=== PATIENT | male | born 1935 | race Caucasian/White ===

== ENCOUNTER 2018-06-25 02:05 | Outpatient (CLI) | payer MEDICARE, BC | END 2018-06-25 23:59 | disposition home or self-care (01) | LOC: DIABETIC 02:05 | PROVIDERS: ATTEND Family Medicine | DX: E11.9 Type 2 diabetes mellitus without complications (principal); Z79.82 Long term (current) use of aspirin; Z79.899 Other long term (current) drug therapy | CPT/HCPCS: G0108 ==

== ENCOUNTER 2018-10-16 08:54 | Outpatient (CLI) | payer MEDICARE, BC | END 2018-10-16 23:59 | disposition home or self-care (01) | LOC: DIABETIC 08:54 | PROVIDERS: ATTEND Family Medicine | DX: E11.9 Type 2 diabetes mellitus without complications (principal); Z79.84 Long term (current) use of oral hypoglycemic drugs; Z79.82 Long term (current) use of aspirin | CPT/HCPCS: G0108 ==

== ENCOUNTER 2019-01-21 04:40 | Outpatient (CLI) | payer MEDICARE, BC | END 2019-01-21 23:59 | disposition home or self-care (01) | LOC: DIABETIC 04:40 | PROVIDERS: ATTEND Family Medicine | DX: E11.9 Type 2 diabetes mellitus without complications (principal); Z79.84 Long term (current) use of oral hypoglycemic drugs | CPT/HCPCS: G0108 ==

== ENCOUNTER 2019-05-27 04:37 | Outpatient (CLI) | payer MEDICARE, BC | END 2019-05-27 23:59 | disposition home or self-care (01) | LOC: DIABETIC 04:37 | PROVIDERS: ATTEND Family Medicine | DX: E11.9 Type 2 diabetes mellitus without complications (principal); Z79.84 Long term (current) use of oral hypoglycemic drugs; Z79.899 Other long term (current) drug therapy | CPT/HCPCS: G0108 ==

== ENCOUNTER 2022-05-23 06:18 | Emergency (ER) | payer MEDICARE, BC ==
[2022-05-23] MEDS ORDERED: normal saline 1000ML IV soln IVB ONE (06:30)
[2022-05-23 08:17] LABS: BASOPHILS # (AUTO) 0.1 X10'3 (0-0.2); BASOPHILS % (AUTO) 0.6 % (0-1); EOSINOPHILS # (AUTO) 0.1 X10'3 (0-0.9); EOSINOPHILS % (AUTO) 0.6 % (0-6); HEMATOCRIT 52.7 % (42.0-52.0); LYMPHOCYTES # (AUTO) 1.3 X10'3 (1.1-4.8); LYMPHOCYTES % (AUTO) 13.3 % (21-51); MEAN CORPUSCULAR HEMOGLOBIN 28.9 PG (27.0-31.0); MEAN CORPUSCULAR HGB CONC 34.3 g/dL (33.0-36.5); MEAN CORPUSCULAR VOLUME 84.3 FL (78-98); MEAN PLATELET VOLUME 8.3 FL (7.4-10.4); MONOCYTES # (AUTO) 0.9 X10'3 (0-0.9); MONOCYTES % (AUTO) 9.5 % (2-12); NEUTROPHILS # (AUTO) 7.3 X10'3 (1.8-7.7); PLATELET COUNT 232 X10'3 (140-440); RED BLOOD COUNT 6.25 X10'6 (4.70-6.10); WHITE BLOOD COUNT 9.6 X10'3 (4.5-11.0)
[2022-05-23 08:20] LABS: HEMOGLOBIN 18.1 g/dl (14.0-17.9)
--- NOTE | 2022-05-23 08:21 | NUR ---
critical lab value received. Hgb 18.1. [place] notified
[2022-05-23 08:32] LABS: ALANINE AMINOTRANSFERASE 24 U/L (12-78); ALKALINE PHOSPHATASE 80 IU/L (46-116); ANION GAP 12 (8-16); ASPARTATE AMINO TRANSFERASE 21 U/L (10-37); BILIRUBIN,TOTAL 1.1 MG/DL (0.1-1.0); BLOOD UREA NITROGEN 15 MG/DL (7-18); BUN/CREATININE RATIO 14.2 (5.4-32.0); CALCIUM 9.5 MG/DL (8.5-10.1); CHLORIDE 98 MMOL/L (99-107); CREATININE 1.06 MG/DL (0.60-1.10); GLUCOSE 155 MG/DL (70-104); POTASSIUM 3.2 MMOL/L (3.5-5.1); SODIUM 135 MMOL/L (135-145); TOTAL CARBON DIOXIDE 25.2 MMOL/L (24-32); eGFR 66 ML/MIN
[2022-05-23 08:44] LABS: ETHANOL < 0.010 GM/DL (0.0-0.010)
--- NOTE | 2022-05-23 12:45 | NUR ---
Pt triaged, seen, treated, and discharged by provider. No nursing contact was made.
--- NOTE | 2022-05-23 13:10 | NUR ---
friend & called to grape picker pt.
== END 2022-05-23 13:12 | disposition home or self-care (01) ==
LOC: ER 06:19
DX: Z13.89 Encounter for screening for other disorder (principal); R51.9 Headache, unspecified; E11.9 Type 2 diabetes mellitus without complications
CPT/HCPCS: 36415; 80053; 80320; 84443; 85025; 99283

== ENCOUNTER 2022-05-28 07:41 | Inpatient (IN) | payer MEDICARE, BC ==
[~2022-05-28] VITALS: Ht 167.6 cm; Wt 75.9 kg
[2022-05-28 09:15] LABS: BASOPHILS # (AUTO) 0.1 X10'3 (0-0.2); BASOPHILS % (AUTO) 1.1 % (0-1); EOSINOPHILS # (AUTO) 0.1 X10'3 (0-0.9); HEMATOCRIT 50.3 % (42.0-52.0); HEMOGLOBIN 16.9 g/dl (14.0-17.9); LYMPHOCYTES # (AUTO) 1.1 X10'3 (1.1-4.8); LYMPHOCYTES % (AUTO) 17.9 % (21-51); MEAN CORPUSCULAR HEMOGLOBIN 28.5 PG (27.0-31.0); MEAN CORPUSCULAR HGB CONC 33.6 g/dL (33.0-36.5); MEAN CORPUSCULAR VOLUME 84.8 FL (78-98); MEAN PLATELET VOLUME 8.4 FL (7.4-10.4); MONOCYTES # (AUTO) 0.7 X10'3 (0-0.9); MONOCYTES % (AUTO) 11.3 % (2-12); NEUTROPHILS # (AUTO) 4.1 X10'3 (1.8-7.7); NEUTROPHILS % (AUTO) 68.7 % (42-75); PLATELET COUNT 255 X10'3 (140-440); RED BLOOD COUNT 5.94 X10'6 (4.70-6.10); RED CELL DISTRIBUTION WIDTH 15.9 % (11.5-14.5)
[2022-05-28 09:22] LABS: ALANINE AMINOTRANSFERASE 25 U/L (12-78); ALBUMIN 3.5 G/DL (3.4-5.0); ALKALINE PHOSPHATASE 69 IU/L (46-116); ANION GAP 10 (8-16); ASPARTATE AMINO TRANSFERASE 15 U/L (10-37); BLOOD UREA NITROGEN 20 MG/DL (7-18); BUN/CREATININE RATIO 15.4 (5.4-32.0); CALCIUM 9.1 MG/DL (8.5-10.1); CHLORIDE 100 MMOL/L (99-107); GLUCOSE 130 MG/DL (70-104); POTASSIUM 3.2 MMOL/L (3.5-5.1); SODIUM 134 MMOL/L (135-145); TOTAL CARBON DIOXIDE 24.1 MMOL/L (24-32); TOTAL PROTEIN 7.1 G/DL (6.4-8.2); eGFR 52 ML/MIN
[2022-05-28 09:33] LABS: ETHANOL < 0.010 GM/DL (0.0-0.010)
--- NOTE | 2022-05-28 09:49 | NUR ---
GIVEN URINAL TO THE PT TO GET URINE SPECIMEN.PT STATED "AM GOING TO TELL YOU THIS IS ALL WASTE OF TIME ". AT BEDSIDE.
[2022-05-28 10:10] LABS: CLARITY,URINE CLEAR (Clear); COLOR,URINE YELLOW (Yellow); GLUCOSE, URINE NEGATIVE (Neg); KETONES,URINE NEGATIVE (Neg); LEUKOCYTE ESTERASE ,URINE NEGATIVE (Neg); NITRITES, URINE NEGATIVE (Neg); OCCULT BLOOD,URINE NEGATIVE (Neg); PROTEIN,URINE NEGATIVE (Neg)
[2022-05-28 10:11] LABS: UA COLLECTION TYPE VOIDED
[2022-05-28 10:15] LABS: URINE AMPHETAMINE SCREEN NEGATIVE (Neg); URINE BARBITUATE SCREEN NEGATIVE (Neg); URINE BENZODIAZEPINES SCREEN NEGATIVE (Neg); URINE CANNABINOID SCREEN NEGATIVE (Neg); URINE COCAINE SCREEN NEGATIVE (Neg); URINE METHADONE SCREEN NEGATIVE (Neg); URINE OPIATE SCREEN NEGATIVE (Neg); URINE PHENCYCLIDINE SCREEN NEGATIVE (Neg)
[2022-05-28] MEDS: normal saline 500ml IV soln 500 ML IV SCH ×6 (12:10→22:32)
[2022-05-28] MEDS ORDERED: ALPRAZolam 0.25mg tablet PO ONE (12:10)
[2022-05-28] MEDS ORDERED: LIDOcaine 1% W/epiNEPHrine 1:100,000 20ml vial SQ ONE (18:25)
[2022-05-28] MEDS ORDERED: risperiDONE 0.5mg tablet PO ONE (19:40)
[2022-05-28] MEDS ORDERED: LIDOcaine 1% 30ml preserv. free vial SQ STA (20:29)
[2022-05-28] MEDS ORDERED: LORazepam 2 mg/ml vial IV ONE ×2 (20:30→20:35)
[2022-05-28 22:49] LABS: GLUCOSE,CSF 78 MG/DL (40-75); TOTAL PROTEIN,CSF 111 MG/DL (30-60)
[2022-05-28 23:51] LABS: APPEARANCE,CSF CLEAR; CSF SUPERNATANT COLOR COLORLESS; CSF VOLUME 8 ML; CSF WBC CT 0 /CU MM (0-5); TUBE# COUNTED 1
[2022-05-28 23:52] LABS: CSF RBC 0 /CU MM (0)
[2022-05-29] MEDS ORDERED: HYDROcodone/acetaminophen 10/325mg tab PO PRN (00:40)
[2022-05-29] MEDS ORDERED: morphine 2 MG/ML inj. syringe IV PRN ×2 (00:40)
[2022-05-29] MEDS ORDERED: diphenhydrAMINE 25mg capsule PO PRN (00:40)
[2022-05-29] MEDS ORDERED: bisacodyl 10mg suppository rectal RC PRN (00:40)
[2022-05-29] MEDS ORDERED: HYDROcodone/acetaminophen 5mg/325mg tablet PO PRN (00:40)
[2022-05-29] MEDS ORDERED: magnesium hydroxide 30ml (MOM) UD suspension PO PRN (00:40)
[2022-05-29] MEDS ORDERED: acetaminophen 325mg tablet PO PRN ×2 (00:40)
[2022-05-29] MEDS ORDERED: HYDROmorphone inj. 0.5 MG/0.5 ML DISP.SYRIN IV PRN (00:40)
[2022-05-29] MEDS ORDERED: ondansetron/PF 4mg/2ml inj IV PRN (00:40)
[2022-05-29] MEDS ORDERED: acetaminophen 650mg rectal suppository RC PRN (00:40)
[2022-05-29] MEDS ORDERED: ondansetron 4mg rapidly disintigrating tab PO PRN (00:40)
[2022-05-29] MEDS ORDERED: diphenhydrAMINE 50 mg/ml inj IV PRN (00:40)
[2022-05-29] MEDS ORDERED: mag hydrox/Alum hydrox/simeth 30ml oral suspension PO PRN (00:40)
[2022-05-29] MEDS ORDERED: glucagon, human recombinant 1mg kit SUBCUT PRN (00:45)
[2022-05-29] MEDS ORDERED: DEXTROSE 15 GM of carb/4 tabs (each vial/BOTTLE has 4 tablets) PO PRN ×2 (00:45)
[2022-05-29] MEDS ORDERED: dextrose 50%-water 50ml dispensing syringe IV PRN ×2 (00:45)
[2022-05-29] MEDS ORDERED: MESSAGE TO PHARMACY PO ONE (00:45)
[2022-05-29] MEDS: normal saline 1000ml 1,000 ML IV SCH ×3 (01:49→20:40)
[2022-05-29] MEDS: normal saline 500ml IV soln 500 ML IV SCH ×3 (01:49→04:27)
[2022-05-29 06:35] LABS: APTT 26 SECONDS (22-32); D-DIMER 3.61 MG/L FEU (0-0.50)
[2022-05-29 07:37] LABS: HEMOGLOBIN A1C 6.8 % (4.5-6.2)
[2022-05-29] MEDS: pantoprazole 40mg Tablet.DR PO SCH (07:43)
[2022-05-29] MEDS: docusate sod 100mg capsule PO SCH ×2 (07:43→21:22)
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
--- NOTE | 2022-05-29 08:35 | NUR ---
Recvd call from MRI, stated that they are unsure as to whether the MRI will get done today because the two staff for the pacemaker company are out with COVID and MRI cannot be done without them present.
--- NOTE | 2022-05-29 09:06 | NUR ---
Patient to go to MRI around 1400 when pacemaker rep arrives.
[2022-05-29 09:10] LABS: CREATINE KINASE 48 U/L (39-308); LIPASE 154 U/L (73-393); MAGNESIUM 2.2 MG/DL (1.5-2.4); PHOSPHORUS 4.9 MG/DL (2.3-4.5)
--- NOTE | 2022-05-29 09:13 | NUR ---
Hospitalist paged regarding mising K and MG protocol orders.
[2022-05-29 12:00] VITALS: BP 142/85
--- NOTE | 2022-05-29 12:04 | NUR ---
Dr Palma telephone order to get MRI with and without contrast. MRI called, Abigail - pharmacy laboratory technician said she needs to check with someone else in MRI as patients GFR is a bit low. States she will call Dr Palma or I back and let us know.
[2022-05-29] MEDS ORDERED: METF-436 PO ×2 (13:41)
[2022-05-29] MEDS ORDERED: CHOL125C6 (13:41)
[2022-05-29] MEDS ORDERED: ERYT1OIN6 EACHEYE (13:41)
[2022-05-29] MEDS ORDERED: NIFE90TA44 PO (13:41)
[2022-05-29] MEDS ORDERED: NAS0.025NS BOTHNARES (13:41)
[2022-05-29] MEDS ORDERED: ATOR10TA70 PO (13:41)
[2022-05-29] MEDS ORDERED: MET0.75G TP (13:41)
[2022-05-29] MEDS ORDERED: LOSA1TAB39 PO (13:41)
[2022-05-29] MEDS ORDERED: POTA-207 PO (13:41)
[2022-05-29] MEDS ORDERED: ASPI-1265 PO (13:41)
[2022-05-29] MEDS ORDERED: TRIA15CR62 TOP (13:41)
[2022-05-29] MEDS ORDERED: CLOT30CR39 (13:41)
[2022-05-29] MEDS ORDERED: NAPR-56 PO (13:41)
[2022-05-29] MEDS ORDERED: OMEP40CA21 PO (13:41)
[2022-05-29 14:00] VITALS: BP 158/110
--- NOTE | 2022-05-29 14:12 | NUR ---
pt to MRI, pt transferred from wheelchair to MRI bed with min assist, Tiago Guerrero, pacemaker tech, to stop pacemaker, pt is resting quietly, resp even and unlabored, skin p/w/d, HR 74, RR 18, 96%
--- NOTE | 2022-05-29 14:30 | NUR ---
HR 74, 96% on room air, pt continues to rest quietly on MRI bed, NAD
--- NOTE | 2022-05-29 14:47 | NUR ---
PAGER ID: [phone] MESSAGE: [id number] Vishnu Pritchard: Pt has high BP, 154/104 and 160/100 - family states he has not had his BP meds today. Yolanda GARCIA
--- NOTE | 2022-05-29 14:57 | NUR ---
pt it back to room 3017b, family at bedside, report to Yolanda BOYLE
[2022-05-29 15:00] VITALS: BP 158/103
--- NOTE | 2022-05-29 15:05 | NUR ---
Dr Palma paged regarding K+ replacement protocol and lab redraw, Yolanda BOYLE aware
[2022-05-29] MEDS ORDERED: HYDROchlorothiazide 25mg tablet PO ONE (16:05)
[2022-05-29] MEDS ORDERED: hydrALAZINE 20mg/ml inj. IV PRN (16:05)
[2022-05-29] MEDS: losartan 50mg tablet PO SCH (16:41)
--- NOTE | 2022-05-29 17:19 | NUR ---
PAGER ID: [phone] MESSAGE: [id number] Vishnu Pritchard; Can patient get Ativan ordered again? Family said it worked well in ER and he slept well. He is very agitated currently. Thanks Yolanda GARCIA
[2022-05-29 18:00] VITALS: BP 150/97
[2022-05-29] MEDS: LORazepam 0.5 MG tablet PO PRN (21:21)
[2022-05-29 22:00] VITALS: BP 161/113
[2022-05-30] VITALS (7 sets, daily range): BP systolic 113–171; BP diastolic 70–99
[2022-05-30] MEDS: temazepam 15mg capsule PO PRN (00:18)
[2022-05-30] MEDS: normal saline 1000ml 1,000 ML IV SCH (02:56)
[2022-05-30 07:33] LABS: ALANINE AMINOTRANSFERASE 14 U/L (12-78); ALBUMIN 3.2 G/DL (3.4-5.0); ALBUMIN/GLOBULIN RATIO 0.9 (1.1-1.5); ALKALINE PHOSPHATASE 66 IU/L (46-116); ANION GAP 12 (8-16); ASPARTATE AMINO TRANSFERASE 16 U/L (10-37); BILIRUBIN,TOTAL 0.8 MG/DL (0.1-1.0); BLOOD UREA NITROGEN 20 MG/DL (7-18); BUN/CREATININE RATIO 14.7 (5.4-32.0); CHLORIDE 104 MMOL/L (99-107); CHOL/HDL RATIO 1.7 (0.00-4.99); CHOLESTEROL 81 MG/DL (0-200); CREATININE 1.36 MG/DL (0.60-1.10); GLUCOSE 117 MG/DL (70-104); HDL CHOLESTEROL 48 MG/DL (35-60); LDL CHOLESTEROL 17 MG/DL (50-100); POTASSIUM 3.2 MMOL/L (3.5-5.1); SODIUM 142 MMOL/L (135-145); TOTAL CARBON DIOXIDE 25.9 MMOL/L (24-32); TOTAL PROTEIN 6.9 G/DL (6.4-8.2); TRIGLYCERIDES 86 MG/DL (20-135); eGFR 50 ML/MIN
[2022-05-30 07:36] LABS: BASOPHILS % (AUTO) 0.8 % (0-1); EOSINOPHILS # (AUTO) 0.1 X10'3 (0-0.9); EOSINOPHILS % (AUTO) 2.5 % (0-6); HEMATOCRIT 48.9 % (42.0-52.0); HEMOGLOBIN 16.8 g/dl (14.0-17.9); LYMPHOCYTES # (AUTO) 1.5 X10'3 (1.1-4.8); LYMPHOCYTES % (AUTO) 24.4 % (21-51); MEAN CORPUSCULAR HEMOGLOBIN 28.8 PG (27.0-31.0); MEAN CORPUSCULAR HGB CONC 34.4 g/dL (33.0-36.5); MEAN CORPUSCULAR VOLUME 83.8 FL (78-98); MEAN PLATELET VOLUME 8.5 FL (7.4-10.4); MONOCYTES # (AUTO) 0.8 X10'3 (0-0.9); MONOCYTES % (AUTO) 13.5 % (2-12); NEUTROPHILS # (AUTO) 3.6 X10'3 (1.8-7.7); NEUTROPHILS % (AUTO) 58.8 % (42-75); RED BLOOD COUNT 5.83 X10'6 (4.70-6.10); RED CELL DISTRIBUTION WIDTH 16.1 % (11.5-14.5)
[2022-05-30 07:37] LABS: PLATELET COUNT 229 X10'3 (140-440)
--- NOTE | 2022-05-30 09:26 | NUR ---
Family has questions about [facility] and coverage. I let them know that Shae is in today and i would have her come talk with them. I left a message on her voicemail at 0925, will follow up.
[2022-05-30] MEDS: HYDROchlorothiazide 25mg tablet PO SCH (10:58)
[2022-05-30] MEDS: NIFEdipine XL 30mg tablet PO SCH (10:58)
[2022-05-30] MEDS: pantoprazole 40mg Tablet.DR PO SCH (10:58)
[2022-05-30] MEDS: docusate sod 100mg capsule PO SCH ×2 (10:58→19:45)
[2022-05-30] MEDS: losartan 50mg tablet PO SCH (11:03)
[2022-05-30] MEDS ORDERED: magnesium 4gm in 100ml NS 100 ML IV PRN (12:35)
[2022-05-30] MEDS ORDERED: magnesium Cl slow-release 64mg tablet PO PRN (12:35)
[2022-05-30] MEDS ORDERED: magnesium 2GM in 50ml NS 50 ML IV PRN (12:35)
[2022-05-30] MEDS ORDERED: POTASSIUM BICARB 20meq eff tab 20 MEQ TABLET.EFF PO PRN ×2 (12:35)
[2022-05-30] MEDS: LORazepam 0.5 MG tablet PO PRN (14:01)
[2022-05-30] MEDS ORDERED: LORazepam 2 mg/ml vial IV ONE (15:20)
[2022-05-30] MEDS ORDERED: LORazepam 2 mg/ml vial IV PRN (19:00)
[2022-05-30] MEDS: K and/or MAG REPLACEMENT MC SCH (19:41)
[2022-05-30] MEDS: potassium CL 10mEq/100ml bag 100 ML IV PRN ×3 (19:43→23:58)
[2022-05-30] MEDS: metroNIDAZOLE 0.75% 45gm topical cream TP SCH ×2 (19:44→20:00)
[2022-05-30] MEDS: atorvastatin 10mg tablet PO SCH (19:51)
--- NOTE | 2022-05-30 23:01 | NUR ---
Pt received one 10Meq bag of potassium on day shift that was empty on arrival but it does not show as scanned on the eMAR
[2022-05-31 02:00] VITALS: BP 126/69
[2022-05-31 06:00] VITALS: BP 128/62
--- NOTE | 2022-05-31 06:53 | NUR ---
Problems reprioritized. Patient report given, questions answered & plan of care reviewed with MONTANA Jones.
[2022-05-31] MEDS ORDERED: pantoprazole 40mg Tablet.DR PO SCH (07:30)
[2022-05-31 07:38] LABS: BASOPHILS # (AUTO) 0.1 X10'3 (0-0.2); BASOPHILS % (AUTO) 0.8 % (0-1); EOSINOPHILS # (AUTO) 0.1 X10'3 (0-0.9); EOSINOPHILS % (AUTO) 1.4 % (0-6); HEMATOCRIT 49.8 % (42.0-52.0); HEMOGLOBIN 17.4 g/dl (14.0-17.9); LYMPHOCYTES # (AUTO) 1.6 X10'3 (1.1-4.8); LYMPHOCYTES % (AUTO) 23.1 % (21-51); MEAN CORPUSCULAR HEMOGLOBIN 29.5 PG (27.0-31.0); MEAN CORPUSCULAR HGB CONC 34.9 g/dL (33.0-36.5); MEAN CORPUSCULAR VOLUME 84.5 FL (78-98); MEAN PLATELET VOLUME 8.6 FL (7.4-10.4); MONOCYTES # (AUTO) 0.8 X10'3 (0-0.9); MONOCYTES % (AUTO) 11.5 % (2-12); NEUTROPHILS # (AUTO) 4.3 X10'3 (1.8-7.7); NEUTROPHILS % (AUTO) 63.2 % (42-75); PLATELET COUNT 210 X10'3 (140-440); RED CELL DISTRIBUTION WIDTH 16.3 % (11.5-14.5); WHITE BLOOD COUNT 6.9 X10'3 (4.5-11.0)
[2022-05-31 07:54] LABS: ALANINE AMINOTRANSFERASE 17 U/L (12-78); ALBUMIN 3.3 G/DL (3.4-5.0); ALBUMIN/GLOBULIN RATIO 0.9 (1.1-1.5); ALKALINE PHOSPHATASE 71 IU/L (46-116); ANION GAP 9 (8-16); ASPARTATE AMINO TRANSFERASE 16 U/L (10-37); BILIRUBIN,TOTAL 0.8 MG/DL (0.1-1.0); BLOOD UREA NITROGEN 21 MG/DL (7-18); BUN/CREATININE RATIO 15.8 (5.4-32.0); CALCIUM 9.2 MG/DL (8.5-10.1); CHLORIDE 104 MMOL/L (99-107); CREATININE 1.33 MG/DL (0.60-1.10); GLUCOSE 129 MG/DL (70-104); MAGNESIUM 1.8 MG/DL (1.5-2.4); POTASSIUM 3.6 MMOL/L (3.5-5.1); SODIUM 140 MMOL/L (135-145); TOTAL CARBON DIOXIDE 26.8 MMOL/L (24-32); eGFR 51 ML/MIN
[2022-05-31] MEDS: K and/or MAG REPLACEMENT MC SCH ×2 (08:00→19:45)
[2022-05-31] MEDS: metroNIDAZOLE 0.75% 45gm topical cream TP SCH ×2 (08:00→19:46)
[2022-05-31] MEDS: aspirin 81mg tab.chew PO SCH (09:49)
[2022-05-31] MEDS: docusate sod 100mg capsule PO SCH ×2 (09:49→20:08)
[2022-05-31] MEDS: HYDROchlorothiazide 25mg tablet PO SCH (09:50)
[2022-05-31] MEDS: potassium Cl 20 mEq SR tablet PO SCH (09:50)
[2022-05-31] MEDS: NIFEdipine XL 30mg tablet PO SCH (09:50)
[2022-05-31] MEDS: losartan 50mg tablet PO SCH (09:51)
[2022-05-31] MEDS: pantoprazole 40mg Tablet.DR PO SCH (09:51)
[2022-05-31 10:00] VITALS: BP 128/82
[2022-05-31 15:00] VITALS: BP 116/64
[2022-05-31 18:00] VITALS: BP 123/87
--- NOTE | 2022-05-31 18:30 | NUR ---
Patient in room PCU 3017. I have received report from Karen BOYLE and had the opportunity to ask questions and assume patient care.
--- NOTE | 2022-05-31 18:54 | NUR ---
Written report left for incoming RN per NOC charge master analyst
[2022-05-31] MEDS: insulin Lispro (HumaLOG) vial - multi-dose SQ SCH (18:59)
[2022-05-31] MEDS: atorvastatin 10mg tablet PO SCH (20:08)
[2022-05-31 22:00] VITALS: BP 128/84
[2022-06-01 02:00] VITALS: BP 140/75
--- NOTE | 2022-06-01 06:23 | NUR ---
Problems reprioritized. Patient report given, questions answered & plan of care reviewed with Miladis BOYLE.
[2022-06-01 07:16] VITALS: BP 159/97
[2022-06-01 07:18] LABS: BASOPHILS # (AUTO) 0.1 X10'3 (0-0.2); BASOPHILS % (AUTO) 0.9 % (0-1); EOSINOPHILS # (AUTO) 0.1 X10'3 (0-0.9); EOSINOPHILS % (AUTO) 1.6 % (0-6); HEMATOCRIT 50.3 % (42.0-52.0); LYMPHOCYTES # (AUTO) 1.4 X10'3 (1.1-4.8); LYMPHOCYTES % (AUTO) 21.3 % (21-51); MEAN CORPUSCULAR HEMOGLOBIN 28.8 PG (27.0-31.0); MEAN CORPUSCULAR HGB CONC 33.7 g/dL (33.0-36.5); MEAN CORPUSCULAR VOLUME 85.5 FL (78-98); MEAN PLATELET VOLUME 8.8 FL (7.4-10.4); MONOCYTES # (AUTO) 0.9 X10'3 (0-0.9); MONOCYTES % (AUTO) 13.2 % (2-12); NEUTROPHILS # (AUTO) 4.3 X10'3 (1.8-7.7); PLATELET COUNT 203 X10'3 (140-440); RED BLOOD COUNT 5.88 X10'6 (4.70-6.10); RED CELL DISTRIBUTION WIDTH 16.3 % (11.5-14.5); WHITE BLOOD COUNT 6.8 X10'3 (4.5-11.0)
[2022-06-01] MEDS: K and/or MAG REPLACEMENT MC SCH ×2 (08:00→20:00)
[2022-06-01] MEDS: metroNIDAZOLE 0.75% 45gm topical cream TP SCH ×2 (08:00→21:09)
[2022-06-01 08:14] LABS: ALANINE AMINOTRANSFERASE 17 U/L (12-78); ALBUMIN 3.3 G/DL (3.4-5.0); ALBUMIN/GLOBULIN RATIO 0.9 (1.1-1.5); ALKALINE PHOSPHATASE 72 IU/L (46-116); ANION GAP 11 (8-16); ASPARTATE AMINO TRANSFERASE 16 U/L (10-37); BILIRUBIN,TOTAL 0.7 MG/DL (0.1-1.0); BLOOD UREA NITROGEN 25 MG/DL (7-18); BUN/CREATININE RATIO 20.3 (5.4-32.0); CALCIUM 9.2 MG/DL (8.5-10.1); CHLORIDE 106 MMOL/L (99-107); CREATININE 1.23 MG/DL (0.60-1.10); GLUCOSE 122 MG/DL (70-104); POTASSIUM 3.5 MMOL/L (3.5-5.1); SODIUM 140 MMOL/L (135-145); TOTAL CARBON DIOXIDE 23.1 MMOL/L (24-32); TOTAL PROTEIN 6.9 G/DL (6.4-8.2); eGFR 56 ML/MIN
[2022-06-01] MEDS: docusate sod 100mg capsule PO SCH ×2 (09:15→21:08)
[2022-06-01] MEDS: losartan 50mg tablet PO SCH (09:15)
[2022-06-01] MEDS: HYDROchlorothiazide 25mg tablet PO SCH (09:15)
[2022-06-01] MEDS: NIFEdipine XL 30mg tablet PO SCH (09:16)
[2022-06-01] MEDS: aspirin 81mg tab.chew PO SCH (09:16)
[2022-06-01] MEDS: pantoprazole 40mg Tablet.DR PO SCH (09:16)
[2022-06-01] MEDS: potassium Cl 20 mEq SR tablet PO SCH (09:16)
[2022-06-01] MEDS: insulin Lispro (HumaLOG) vial - multi-dose SQ SCH ×2 (09:31→19:22)
[2022-06-01 11:00] VITALS: BP 135/81
[2022-06-01 15:43] VITALS: BP 107/60
[2022-06-01 18:00] VITALS: BP 152/98
--- NOTE | 2022-06-01 18:45 | NUR ---
Problems reprioritized. Patient report given, questions answered & plan of care reviewed with LILY BOYLE.
--- NOTE | 2022-06-01 18:50 | NUR ---
Patient in room PCU 3017. I have received report from MONTANA Redding and had the opportunity to ask questions and assume patient care.
[2022-06-01] MEDS: atorvastatin 10mg tablet PO SCH (21:08)
[2022-06-01] MEDS: temazepam 15mg capsule PO PRN (21:08)
[2022-06-01 22:00] VITALS: BP 155/86
[2022-06-02 02:00] VITALS: BP 137/86
--- NOTE | 2022-06-02 02:00 | NUR ---
HS accucheck not performed. Pt does not have Lantus ordered.
--- NOTE | 2022-06-02 06:25 | NUR ---
Patient in room PCU 3017. I have received report from macie ray and had the opportunity to ask questions and assume patient care.
--- NOTE | 2022-06-02 06:28 | NUR ---
Problems reprioritized. Patient report given, questions answered & plan of care reviewed with MONTANA Redding.
[2022-06-02 06:55] VITALS: BP 144/89
[2022-06-02] MEDS: metroNIDAZOLE 0.75% 45gm topical cream TP SCH ×2 (07:25→20:00)
[2022-06-02] MEDS: aspirin 81mg tab.chew PO SCH (07:27)
[2022-06-02] MEDS: losartan 50mg tablet PO SCH (07:27)
[2022-06-02] MEDS: HYDROchlorothiazide 25mg tablet PO SCH (07:27)
[2022-06-02] MEDS: docusate sod 100mg capsule PO SCH ×2 (07:27→20:11)
[2022-06-02] MEDS: pantoprazole 40mg Tablet.DR PO SCH (07:27)
[2022-06-02] MEDS: NIFEdipine XL 30mg tablet PO SCH (07:27)
[2022-06-02] MEDS: potassium Cl 20 mEq SR tablet PO SCH (07:27)
[2022-06-02] MEDS: K and/or MAG REPLACEMENT MC SCH ×2 (08:00→20:00)
[2022-06-02 08:06] LABS: BASOPHILS # (AUTO) 0.1 X10'3 (0-0.2); BASOPHILS % (AUTO) 0.9 % (0-1); EOSINOPHILS # (AUTO) 0.1 X10'3 (0-0.9); EOSINOPHILS % (AUTO) 1.6 % (0-6); HEMATOCRIT 49.3 % (42.0-52.0); HEMOGLOBIN 17.1 g/dl (14.0-17.9); LYMPHOCYTES # (AUTO) 1.2 X10'3 (1.1-4.8); LYMPHOCYTES % (AUTO) 15.8 % (21-51); MEAN CORPUSCULAR HEMOGLOBIN 29.4 PG (27.0-31.0); MEAN CORPUSCULAR HGB CONC 34.8 g/dL (33.0-36.5); MEAN CORPUSCULAR VOLUME 84.6 FL (78-98); MEAN PLATELET VOLUME 8.6 FL (7.4-10.4); MONOCYTES # (AUTO) 0.8 X10'3 (0-0.9); MONOCYTES % (AUTO) 10.2 % (2-12); NEUTROPHILS # (AUTO) 5.6 X10'3 (1.8-7.7); NEUTROPHILS % (AUTO) 71.5 % (42-75); PLATELET COUNT 208 X10'3 (140-440); RED BLOOD COUNT 5.83 X10'6 (4.70-6.10); RED CELL DISTRIBUTION WIDTH 16.2 % (11.5-14.5); WHITE BLOOD COUNT 7.8 X10'3 (4.5-11.0)
[2022-06-02 08:17] LABS: ALANINE AMINOTRANSFERASE 18 U/L (12-78); ALBUMIN 3.4 G/DL (3.4-5.0); ALBUMIN/GLOBULIN RATIO 0.9 (1.1-1.5); ALKALINE PHOSPHATASE 73 IU/L (46-116); ANION GAP 9 (8-16); ASPARTATE AMINO TRANSFERASE 17 U/L (10-37); BILIRUBIN,TOTAL 0.9 MG/DL (0.1-1.0); BLOOD UREA NITROGEN 26 MG/DL (7-18); BUN/CREATININE RATIO 19.5 (5.4-32.0); CALCIUM 9.3 MG/DL (8.5-10.1); CHLORIDE 103 MMOL/L (99-107); CREATININE 1.33 MG/DL (0.60-1.10); GLUCOSE 131 MG/DL (70-104); POTASSIUM 3.2 MMOL/L (3.5-5.1); SODIUM 138 MMOL/L (135-145); TOTAL CARBON DIOXIDE 25.8 MMOL/L (24-32); eGFR 51 ML/MIN
[2022-06-02] MEDS: insulin Lispro (HumaLOG) vial - multi-dose SQ SCH (09:27)
[2022-06-02] MEDS: LORazepam 0.5 MG tablet PO PRN (10:50)
[2022-06-02 11:00] VITALS: BP 134/81
[2022-06-02 15:00] VITALS: BP 147/83
[2022-06-02] MEDS ORDERED: magnesium 2GM in 50ml NS 50 ML IV PRN (16:10)
[2022-06-02] MEDS ORDERED: potassium CL 10mEq/100ml bag 100 ML IV PRN (16:10)
[2022-06-02] MEDS ORDERED: magnesium 4gm in 100ml NS 100 ML IV PRN (16:10)
[2022-06-02] MEDS ORDERED: POTASSIUM BICARB 20meq eff tab 20 MEQ TABLET.EFF PO PRN (16:10)
[2022-06-02] MEDS: POTASSIUM BICARB 20meq eff tab 20 MEQ TABLET.EFF PO PRN ×2 (16:22→20:26)
[2022-06-02 18:00] VITALS: BP 154/91
--- NOTE | 2022-06-02 18:30 | NUR ---
Patient in room PCU 3017. I have received report from JEN and had the opportunity to ask questions and assume patient care.
--- NOTE | 2022-06-02 18:32 | NUR ---
Problems reprioritized. Patient report given, questions answered & plan of care reviewed with RAVI BOYLE.
[2022-06-02] MEDS: atorvastatin 10mg tablet PO SCH (20:11)
[2022-06-02 22:00] VITALS: BP 107/73
[2022-06-02] MEDS: temazepam 15mg capsule PO PRN (22:02)
[2022-06-03 02:00] VITALS: BP 143/84
--- NOTE | 2022-06-03 03:40 | NUR ---
Reviewed INSURANCE HEALTHCARE CONSULTANT assessment and in agreement.
[2022-06-03 06:00] VITALS: BP 132/87
--- NOTE | 2022-06-03 06:21 | NUR ---
Problems reprioritized. Patient report given, questions answered & plan of care reviewed with JEANE.
--- NOTE | 2022-06-03 06:27 | NUR ---
Patient in room PCU 3017. I have received report from Brad BOYLE and had the opportunity to ask questions and assume patient care.
[2022-06-03 06:47] LABS: BASOPHILS # (AUTO) 0.1 X10'3 (0-0.2); EOSINOPHILS # (AUTO) 0.2 X10'3 (0-0.9); EOSINOPHILS % (AUTO) 2.3 % (0-6); HEMATOCRIT 47.3 % (42.0-52.0); HEMOGLOBIN 16.1 g/dl (14.0-17.9); LYMPHOCYTES # (AUTO) 1.3 X10'3 (1.1-4.8); LYMPHOCYTES % (AUTO) 19.1 % (21-51); MEAN CORPUSCULAR VOLUME 85.2 FL (78-98); MEAN PLATELET VOLUME 8.7 FL (7.4-10.4); MONOCYTES # (AUTO) 0.7 X10'3 (0-0.9); MONOCYTES % (AUTO) 10.9 % (2-12); NEUTROPHILS # (AUTO) 4.4 X10'3 (1.8-7.7); NEUTROPHILS % (AUTO) 66.7 % (42-75); PLATELET COUNT 185 X10'3 (140-440); RED BLOOD COUNT 5.55 X10'6 (4.70-6.10); RED CELL DISTRIBUTION WIDTH 16.3 % (11.5-14.5); WHITE BLOOD COUNT 6.6 X10'3 (4.5-11.0)
[2022-06-03 07:14] LABS: ALANINE AMINOTRANSFERASE 18 U/L (12-78); ALBUMIN 3.1 G/DL (3.4-5.0); ALBUMIN/GLOBULIN RATIO 0.9 (1.1-1.5); ALKALINE PHOSPHATASE 67 IU/L (46-116); ANION GAP 8 (8-16); ASPARTATE AMINO TRANSFERASE 17 U/L (10-37); BILIRUBIN,TOTAL 0.7 MG/DL (0.1-1.0); BLOOD UREA NITROGEN 29 MG/DL (7-18); BUN/CREATININE RATIO 23.4 (5.4-32.0); CALCIUM 9.1 MG/DL (8.5-10.1); CHLORIDE 106 MMOL/L (99-107); CREATININE 1.24 MG/DL (0.60-1.10); GLUCOSE 127 MG/DL (70-104); MAGNESIUM 1.9 MG/DL (1.5-2.4); POTASSIUM 3.3 MMOL/L (3.5-5.1); SODIUM 140 MMOL/L (135-145); TOTAL CARBON DIOXIDE 26.2 MMOL/L (24-32); TOTAL PROTEIN 6.6 G/DL (6.4-8.2); eGFR 55 ML/MIN
[2022-06-03] MEDS: K and/or MAG REPLACEMENT MC SCH ×2 (08:00→20:00)
[2022-06-03] MEDS: metroNIDAZOLE 0.75% 45gm topical cream TP SCH ×2 (08:00→19:59)
[2022-06-03] MEDS: potassium Cl 20 mEq SR tablet PO SCH (08:00)
[2022-06-03] MEDS: pantoprazole 40mg Tablet.DR PO SCH (08:42)
[2022-06-03] MEDS: HYDROchlorothiazide 25mg tablet PO SCH (08:42)
[2022-06-03] MEDS: NIFEdipine XL 30mg tablet PO SCH (08:43)
[2022-06-03] MEDS: losartan 50mg tablet PO SCH (08:43)
[2022-06-03] MEDS: aspirin 81mg tab.chew PO SCH (08:43)
[2022-06-03] MEDS: docusate sod 100mg capsule PO SCH ×2 (08:44→19:51)
[2022-06-03] MEDS: insulin Lispro (HumaLOG) vial - multi-dose SQ SCH ×3 (09:10→19:48)
[2022-06-03 11:00] VITALS: BP 111/63
--- NOTE | 2022-06-03 11:59 | NUR ---
Initial: Pt admit DX normal pressure hydrocephalus, ataxia, HTN, stage III renal failure, hypokalemia, and hx T2DM A1C 6.8% per EMR. Pt PO fluctuates ~72% avg carb controlled meals improving to more frequent 100% recent meals partially meeting needs. Glu 129mg/dl highest of 183mg/dl receiving humalog per EMR. LBM 06/01 receiving routine colace. Will monitor for further PO trends and nutrition intervention needs. Rec: 1. liberalize to regular diet given age/A1C 2. routine bowel care 3. scaled wt this admit; subsequent weekly wts Addendum: 06/03/22 at [address] Amended: Links added.
--- NOTE | 2022-06-03 16:06 | NUR ---
Pt refused 1500 vitals. Son at bedside.
[2022-06-03 18:00] VITALS: BP 146/90
--- NOTE | 2022-06-03 18:10 | NUR ---
Patient in room PCU 3017. I have received report from enedelia ray and had the opportunity to ask questions and assume patient care.
[2022-06-03] MEDS: LORazepam 0.5 MG tablet PO PRN (18:12)
[2022-06-03] MEDS: atorvastatin 10mg tablet PO SCH (19:52)
--- NOTE | 2022-06-04 05:26 | NUR ---
AGREE WITH LARRY OPERATOR PHYSICAL ASSESSMENT CHARTED
[2022-06-04 06:00] VITALS: BP 167/89
--- NOTE | 2022-06-04 06:27 | NUR ---
Problems reprioritized. Patient report given, questions answered & plan of care reviewed with keri BOYLE.
[2022-06-04 07:01] LABS: BASOPHILS # (AUTO) 0.1 X10'3 (0-0.2); BASOPHILS % (AUTO) 0.9 % (0-1); EOSINOPHILS # (AUTO) 0.1 X10'3 (0-0.9); HEMATOCRIT 47.7 % (42.0-52.0); HEMOGLOBIN 16.4 g/dl (14.0-17.9); LYMPHOCYTES # (AUTO) 1.2 X10'3 (1.1-4.8); LYMPHOCYTES % (AUTO) 18.1 % (21-51); MEAN CORPUSCULAR HEMOGLOBIN 29.1 PG (27.0-31.0); MEAN CORPUSCULAR HGB CONC 34.4 g/dL (33.0-36.5); MEAN CORPUSCULAR VOLUME 84.6 FL (78-98); MEAN PLATELET VOLUME 8.9 FL (7.4-10.4); MONOCYTES # (AUTO) 0.7 X10'3 (0-0.9); MONOCYTES % (AUTO) 10.5 % (2-12); NEUTROPHILS # (AUTO) 4.7 X10'3 (1.8-7.7); NEUTROPHILS % (AUTO) 68.5 % (42-75); PLATELET COUNT 191 X10'3 (140-440); RED BLOOD COUNT 5.64 X10'6 (4.70-6.10); RED CELL DISTRIBUTION WIDTH 15.9 % (11.5-14.5); WHITE BLOOD COUNT 6.9 X10'3 (4.5-11.0)
[2022-06-04 07:18] LABS: ALANINE AMINOTRANSFERASE 21 U/L (12-78); ALBUMIN 3.1 G/DL (3.4-5.0); ALBUMIN/GLOBULIN RATIO 0.9 (1.1-1.5); ALKALINE PHOSPHATASE 70 IU/L (46-116); ANION GAP 8 (8-16); ASPARTATE AMINO TRANSFERASE 18 U/L (10-37); BILIRUBIN,TOTAL 0.8 MG/DL (0.1-1.0); BLOOD UREA NITROGEN 21 MG/DL (7-18); BUN/CREATININE RATIO 18.3 (5.4-32.0); CHLORIDE 103 MMOL/L (99-107); CREATININE 1.15 MG/DL (0.60-1.10); GLUCOSE 113 MG/DL (70-104); POTASSIUM 3.2 MMOL/L (3.5-5.1); SODIUM 139 MMOL/L (135-145); TOTAL CARBON DIOXIDE 27.9 MMOL/L (24-32); TOTAL PROTEIN 6.5 G/DL (6.4-8.2); eGFR 60 ML/MIN
--- NOTE | 2022-06-04 07:20 | NUR ---
Patient in room PCU 3017. I have received report from MONTANA HURST, and had the opportunity to ask questions and assume patient care.
[2022-06-04] MEDS: K and/or MAG REPLACEMENT MC SCH ×2 (07:24→20:00)
[2022-06-04] MEDS: losartan 50mg tablet PO SCH (07:44)
[2022-06-04] MEDS: docusate sod 100mg capsule PO SCH ×2 (07:45→20:11)
[2022-06-04] MEDS: HYDROchlorothiazide 25mg tablet PO SCH (07:45)
[2022-06-04] MEDS: aspirin 81mg tab.chew PO SCH (07:45)
[2022-06-04] MEDS: NIFEdipine XL 30mg tablet PO SCH (07:45)
[2022-06-04] MEDS: potassium Cl 20 mEq SR tablet PO SCH (07:48)
[2022-06-04] MEDS: pantoprazole 40mg Tablet.DR PO SCH (07:48)
[2022-06-04] MEDS: metroNIDAZOLE 0.75% 45gm topical cream TP SCH ×2 (07:49→20:00)
[2022-06-04 11:00] VITALS: BP 114/55
--- NOTE | 2022-06-04 13:16 | NUR ---
Problems reprioritized. Patient report given, questions answered & plan of care reviewed with MONTANA TIAN.
--- NOTE | 2022-06-04 13:16 | NUR ---
Patient in room PCU 3017. I have received report from JAMES BOYLE and had the opportunity to ask questions and assume patient care.
[2022-06-04] MEDS: insulin Lispro (HumaLOG) vial - multi-dose SQ SCH ×2 (13:59→20:10)
[2022-06-04 16:13] VITALS: BP 130/78
--- NOTE | 2022-06-04 18:19 | NUR ---
Problems reprioritized. Patient report given, questions answered & plan of care reviewed with NATALI RANKIN.
[2022-06-04] MEDS: atorvastatin 10mg tablet PO SCH (20:12)
[2022-06-04] MEDS: POTASSIUM BICARB 20meq eff tab 20 MEQ TABLET.EFF PO PRN (20:13)
[2022-06-04] MEDS: temazepam 15mg capsule PO PRN (21:25)
--- NOTE | 2022-06-05 03:00 | NUR ---
PT REFUSED 0200 VITALS
[2022-06-05 06:00] VITALS: BP 113/77
[2022-06-05 06:36] LABS: BASOPHILS # (AUTO) 0.1 X10'3 (0-0.2); BASOPHILS % (AUTO) 0.8 % (0-1); EOSINOPHILS # (AUTO) 0.2 X10'3 (0-0.9); EOSINOPHILS % (AUTO) 3.2 % (0-6); HEMATOCRIT 46.3 % (42.0-52.0); HEMOGLOBIN 15.8 g/dl (14.0-17.9); LYMPHOCYTES # (AUTO) 1.7 X10'3 (1.1-4.8); LYMPHOCYTES % (AUTO) 26.9 % (21-51); MEAN CORPUSCULAR HEMOGLOBIN 29.1 PG (27.0-31.0); MEAN CORPUSCULAR HGB CONC 34.1 g/dL (33.0-36.5); MEAN CORPUSCULAR VOLUME 85.2 FL (78-98); MEAN PLATELET VOLUME 8.6 FL (7.4-10.4); MONOCYTES # (AUTO) 0.9 X10'3 (0-0.9); MONOCYTES % (AUTO) 13.7 % (2-12); NEUTROPHILS # (AUTO) 3.6 X10'3 (1.8-7.7); NEUTROPHILS % (AUTO) 55.4 % (42-75); PLATELET COUNT 184 X10'3 (140-440); RED BLOOD COUNT 5.43 X10'6 (4.70-6.10); RED CELL DISTRIBUTION WIDTH 15.9 % (11.5-14.5); WHITE BLOOD COUNT 6.4 X10'3 (4.5-11.0)
[2022-06-05 07:16] LABS: ALANINE AMINOTRANSFERASE 20 U/L (12-78); ALBUMIN 3.1 G/DL (3.4-5.0); ALBUMIN/GLOBULIN RATIO 0.9 (1.1-1.5); ALKALINE PHOSPHATASE 69 IU/L (46-116); ANION GAP 9 (8-16); ASPARTATE AMINO TRANSFERASE 16 U/L (10-37); BILIRUBIN,TOTAL 0.6 MG/DL (0.1-1.0); BLOOD UREA NITROGEN 26 MG/DL (7-18); BUN/CREATININE RATIO 15.9 (5.4-32.0); CALCIUM 9.1 MG/DL (8.5-10.1); CHLORIDE 104 MMOL/L (99-107); CREATININE 1.64 MG/DL (0.60-1.10); GLUCOSE 103 MG/DL (70-104); POTASSIUM 3.8 MMOL/L (3.5-5.1); SODIUM 142 MMOL/L (135-145); TOTAL PROTEIN 6.4 G/DL (6.4-8.2); eGFR 40 ML/MIN
[2022-06-05] MEDS: losartan 50mg tablet PO SCH (07:59)
[2022-06-05] MEDS: NIFEdipine XL 30mg tablet PO SCH (07:59)
[2022-06-05] MEDS: pantoprazole 40mg Tablet.DR PO SCH (07:59)
[2022-06-05] MEDS: HYDROchlorothiazide 25mg tablet PO SCH (07:59)
[2022-06-05] MEDS: potassium Cl 20 mEq SR tablet PO SCH (07:59)
[2022-06-05] MEDS: aspirin 81mg tab.chew PO SCH (07:59)
[2022-06-05] MEDS: docusate sod 100mg capsule PO SCH ×2 (08:00→20:08)
[2022-06-05] MEDS: K and/or MAG REPLACEMENT MC SCH ×2 (08:00→19:30)
[2022-06-05] MEDS: metroNIDAZOLE 0.75% 45gm topical cream TP SCH ×2 (08:04→20:21)
--- NOTE | 2022-06-05 10:58 | NUR ---
CALLED PHARMACY @ 1916 REQUESTING HUMALOG TO ADMINISTER PROTOCOL DOSE OF INSULIN FOR AM BLOOD SUGAR AND BREAKFAST COVERAGE. STILL HAD NOT RECEIVED INSULIN. CALLED [facility], WAS TOLD IT WAS STILL IN PHARMACY. DUE TO CURRENT TIME I WILL NEED TO MISS AM DOSE OF 6UNITS. NEXT BG CHECK IS IN 30 MINUTES.
--- NOTE | 2022-06-05 11:13 | NUR ---
Malnutrition Consult: Pt reports 24-33 pounds wt loss w/ decreased intake per RN Malnutrition Screen. Pt hx dementia present w/ mild weakness, no edema, no scaled wt this admit or prior scaled wt hx, and mostly PO ~100% avg carb controlled meals since 05/31 outside no meal intake documentation yesterday. Pt lacks minimum malnutrition criteria at this time. Addendum: 06/05/22 at [address] Amended: Links added.
[2022-06-05] MEDS: insulin Lispro (HumaLOG) vial - multi-dose SQ SCH (14:50)
[2022-06-05 15:00] VITALS: BP 106/61
[2022-06-05 18:00] VITALS: BP 135/76
[2022-06-05] MEDS: atorvastatin 10mg tablet PO SCH (20:08)
[2022-06-05] MEDS: temazepam 15mg capsule PO PRN (20:08)
[2022-06-05 22:00] VITALS: BP 142/83
[2022-06-06 06:25] LABS: BASOPHILS # (AUTO) 0.1 X10'3 (0-0.2); BASOPHILS % (AUTO) 1.2 % (0-1); EOSINOPHILS # (AUTO) 0.2 X10'3 (0-0.9); EOSINOPHILS % (AUTO) 3.1 % (0-6); HEMATOCRIT 45.5 % (42.0-52.0); HEMOGLOBIN 15.7 g/dl (14.0-17.9); LYMPHOCYTES # (AUTO) 1.2 X10'3 (1.1-4.8); LYMPHOCYTES % (AUTO) 19.6 % (21-51); MEAN CORPUSCULAR HEMOGLOBIN 29.5 PG (27.0-31.0); MEAN CORPUSCULAR HGB CONC 34.6 g/dL (33.0-36.5); MEAN CORPUSCULAR VOLUME 85.3 FL (78-98); MEAN PLATELET VOLUME 8.6 FL (7.4-10.4); MONOCYTES # (AUTO) 0.7 X10'3 (0-0.9); MONOCYTES % (AUTO) 11.7 % (2-12); NEUTROPHILS % (AUTO) 64.4 % (42-75); PLATELET COUNT 176 X10'3 (140-440); RED BLOOD COUNT 5.34 X10'6 (4.70-6.10); RED CELL DISTRIBUTION WIDTH 15.7 % (11.5-14.5); WHITE BLOOD COUNT 6.2 X10'3 (4.5-11.0)
--- NOTE | 2022-06-06 06:30 | NUR ---
Patient in room PCU 3017. I have received report from Valeri BOYLE and had the opportunity to ask questions and assume patient care.
[2022-06-06 06:42] LABS: ALANINE AMINOTRANSFERASE 23 U/L (12-78); ALBUMIN 2.9 G/DL (3.4-5.0); ALBUMIN/GLOBULIN RATIO 0.8 (1.1-1.5); ALKALINE PHOSPHATASE 71 IU/L (46-116); ANION GAP 9 (8-16); ASPARTATE AMINO TRANSFERASE 19 U/L (10-37); BILIRUBIN,TOTAL 0.6 MG/DL (0.1-1.0); BLOOD UREA NITROGEN 27 MG/DL (7-18); CALCIUM 9.1 MG/DL (8.5-10.1); CHLORIDE 105 MMOL/L (99-107); CREATININE 1.42 MG/DL (0.60-1.10); GLUCOSE 118 MG/DL (70-104); POTASSIUM 3.5 MMOL/L (3.5-5.1); SODIUM 140 MMOL/L (135-145); TOTAL CARBON DIOXIDE 25.9 MMOL/L (24-32); TOTAL PROTEIN 6.5 G/DL (6.4-8.2); eGFR 47 ML/MIN
[2022-06-06 07:00] VITALS: BP 156/86
[2022-06-06] MEDS: K and/or MAG REPLACEMENT MC SCH ×2 (07:27→19:55)
[2022-06-06] MEDS: metroNIDAZOLE 0.75% 45gm topical cream TP SCH ×2 (08:00→20:00)
[2022-06-06] MEDS: potassium Cl 20 mEq SR tablet PO SCH ×2 (08:00→09:35)
[2022-06-06] MEDS: insulin Lispro (HumaLOG) vial - multi-dose SQ SCH ×2 (08:52→14:36)
[2022-06-06] MEDS: HYDROchlorothiazide 25mg tablet PO SCH (09:34)
[2022-06-06] MEDS: aspirin 81mg tab.chew PO SCH (09:35)
[2022-06-06] MEDS: losartan 50mg tablet PO SCH (09:35)
[2022-06-06] MEDS: pantoprazole 40mg Tablet.DR PO SCH (09:35)
[2022-06-06] MEDS: docusate sod 100mg capsule PO SCH ×2 (09:35→20:12)
[2022-06-06] MEDS: NIFEdipine XL 30mg tablet PO SCH (09:35)
--- NOTE | 2022-06-06 10:01 | NUR ---
Patient states he has not used creams for "a very long time" and is unsure what they were even used for in the past. Family also is not sure. Asking to have them discontinued. Patient also says he cannot swallow K-dur tabs. Will ask MD to switch to Effer K, but current potassium is stable at 3.5
[2022-06-06 11:00] VITALS: BP 136/86
[2022-06-06 15:00] VITALS: BP 113/66
[2022-06-06 18:00] VITALS: BP 137/73
[2022-06-06] MEDS: temazepam 15mg capsule PO PRN (20:13)
[2022-06-06] MEDS: atorvastatin 10mg tablet PO SCH (20:13)
[2022-06-06 22:00] VITALS: BP 143/85
[2022-06-07 02:00] VITALS: BP 153/89
--- NOTE | 2022-06-07 06:15 | NUR ---
Patient in room PCU 3017. I have received report from Selene BOYLE and had the opportunity to ask questions and assume patient care.
[2022-06-07 07:00] VITALS: BP 120/75
--- NOTE | 2022-06-07 07:27 | NUR ---
telephone order for standard morning labs - CBC and BMP.
[2022-06-07] MEDS: metroNIDAZOLE 0.75% 45gm topical cream TP SCH ×2 (08:00→20:00)
[2022-06-07] MEDS: potassium Cl 20 mEq SR tablet PO SCH (08:00)
[2022-06-07] MEDS: K and/or MAG REPLACEMENT MC SCH ×2 (08:00→20:00)
[2022-06-07 08:15] LABS: BASOPHILS # (AUTO) 0.1 X10'3 (0-0.2); BASOPHILS % (AUTO) 0.9 % (0-1); EOSINOPHILS # (AUTO) 0.1 X10'3 (0-0.9); EOSINOPHILS % (AUTO) 2.4 % (0-6); HEMATOCRIT 47.2 % (42.0-52.0); HEMOGLOBIN 15.9 g/dl (14.0-17.9); LYMPHOCYTES # (AUTO) 1.1 X10'3 (1.1-4.8); LYMPHOCYTES % (AUTO) 17.3 % (21-51); MEAN CORPUSCULAR HEMOGLOBIN 28.6 PG (27.0-31.0); MEAN CORPUSCULAR HGB CONC 33.6 g/dL (33.0-36.5); MEAN CORPUSCULAR VOLUME 85.1 FL (78-98); MEAN PLATELET VOLUME 8.2 FL (7.4-10.4); MONOCYTES # (AUTO) 0.7 X10'3 (0-0.9); MONOCYTES % (AUTO) 11.5 % (2-12); NEUTROPHILS # (AUTO) 4.1 X10'3 (1.8-7.7); NEUTROPHILS % (AUTO) 67.9 % (42-75); PLATELET COUNT 199 X10'3 (140-440); RED BLOOD COUNT 5.55 X10'6 (4.70-6.10); RED CELL DISTRIBUTION WIDTH 15.9 % (11.5-14.5); WHITE BLOOD COUNT 6.1 X10'3 (4.5-11.0)
[2022-06-07] MEDS: insulin Lispro (HumaLOG) vial - multi-dose SQ SCH ×2 (09:14→14:00)
[2022-06-07] MEDS: pantoprazole 40mg Tablet.DR PO SCH (09:21)
[2022-06-07] MEDS: docusate sod 100mg capsule PO SCH ×2 (09:21→20:55)
[2022-06-07] MEDS: HYDROchlorothiazide 25mg tablet PO SCH (09:21)
[2022-06-07] MEDS: aspirin 81mg tab.chew PO SCH (09:21)
[2022-06-07] MEDS: NIFEdipine XL 30mg tablet PO SCH (09:21)
[2022-06-07] MEDS: losartan 50mg tablet PO SCH (09:22)
[2022-06-07 09:27] LABS: ALBUMIN 3.2 G/DL (3.4-5.0); ANION GAP 8 (8-16); BLOOD UREA NITROGEN 23 MG/DL (7-18); BUN/CREATININE RATIO 19.3 (5.4-32.0); CHLORIDE 102 MMOL/L (99-107); CREATININE 1.19 MG/DL (0.60-1.10); GLUCOSE 140 MG/DL (70-104); POTASSIUM 3.5 MMOL/L (3.5-5.1); SODIUM 139 MMOL/L (135-145); TOTAL CARBON DIOXIDE 29.4 MMOL/L (24-32); eGFR 58 ML/MIN
[2022-06-07] MEDS ORDERED: POTASSIUM BICARB 20meq eff tab 20 MEQ TABLET.EFF PO ONE (09:45)
[2022-06-07 11:00] VITALS: BP 120/58
[2022-06-07] MEDS: POTASSIUM BICARB 20meq eff tab 20 MEQ TABLET.EFF PO SCH ×2 (11:41→20:55)
--- NOTE | 2022-06-07 13:29 | NUR ---
Patients daughter in law reports patient just had an episode of bladder incontinence, which she notes is new for the patient. Family is very involved in patients care and are well aware of his history during this stay.
[2022-06-07 15:00] VITALS: BP 119/59
[2022-06-07 18:00] VITALS: BP 125/72
[2022-06-07] MEDS: atorvastatin 10mg tablet PO SCH (20:55)
[2022-06-07] MEDS: temazepam 15mg capsule PO PRN (20:55)
[2022-06-08 02:00] VITALS: BP 134/68
[2022-06-08 06:00] VITALS: BP 145/82
[2022-06-08] MEDS: aspirin 81mg tab.chew PO SCH (07:56)
[2022-06-08] MEDS: NIFEdipine XL 30mg tablet PO SCH (07:56)
[2022-06-08] MEDS: pantoprazole 40mg Tablet.DR PO SCH (07:56)
[2022-06-08] MEDS: losartan 50mg tablet PO SCH (07:57)
[2022-06-08] MEDS: docusate sod 100mg capsule PO SCH ×2 (07:57→20:00)
[2022-06-08] MEDS: potassium Cl 20 mEq SR tablet PO SCH (07:57)
[2022-06-08] MEDS: metroNIDAZOLE 0.75% 45gm topical cream TP SCH (07:58)
[2022-06-08] MEDS: HYDROchlorothiazide 25mg tablet PO SCH (07:58)
[2022-06-08] MEDS: POTASSIUM BICARB 20meq eff tab 20 MEQ TABLET.EFF PO SCH ×3 (08:00→21:55)
[2022-06-08] MEDS: K and/or MAG REPLACEMENT MC SCH ×2 (08:00→20:00)
--- NOTE | 2022-06-08 08:50 | NUR ---
Reassessment: Pt continues on Carb control diet w/ mostly 100% intake of meals meeting needs at this time. May consider liberalizing to Regular diet given age. LBM 06/06 receiving routine colace. No change to recommendations at this time, will continue to monitor. Rec: 1. liberalize to regular diet given age/A1C 2. routine bowel care 3. scaled wt this admit; subsequent weekly wts Addendum: 06/08/22 at [address] Amended: Links added.
[2022-06-08 11:00] VITALS: BP 107/60
[2022-06-08] MEDS: insulin Lispro (HumaLOG) vial - multi-dose SQ SCH ×2 (14:38→19:45)
[2022-06-08 15:00] VITALS: BP 143/59
[2022-06-08 18:00] VITALS: BP 124/64
--- NOTE | 2022-06-08 18:25 | NUR ---
Patient in room PCU 3017. I have received report from Viktoria and had the opportunity to ask questions and assume patient care.
[2022-06-08] MEDS: atorvastatin 10mg tablet PO SCH (21:55)
[2022-06-09 06:00] VITALS: BP 137/81
--- NOTE | 2022-06-09 06:00 | NUR ---
Agree with WASHHOUSE HAND assessment
--- NOTE | 2022-06-09 06:32 | NUR ---
Patient in room PCU 3017. I have received report from Mariya BOYLE and had the opportunity to ask questions and assume patient care.
--- NOTE | 2022-06-09 06:45 | NUR ---
Problems reprioritized. Patient report given, questions answered & plan of care reviewed with Wanda BOYLE.
[2022-06-09] MEDS: losartan 50mg tablet PO SCH (07:47)
[2022-06-09] MEDS: NIFEdipine XL 30mg tablet PO SCH (07:47)
[2022-06-09] MEDS: POTASSIUM BICARB 20meq eff tab 20 MEQ TABLET.EFF PO SCH ×2 (07:48→13:50)
[2022-06-09] MEDS: aspirin 81mg tab.chew PO SCH (07:48)
[2022-06-09] MEDS: HYDROchlorothiazide 25mg tablet PO SCH (07:48)
[2022-06-09] MEDS: docusate sod 100mg capsule PO SCH (07:48)
[2022-06-09] MEDS: pantoprazole 40mg Tablet.DR PO SCH (07:48)
[2022-06-09] MEDS: K and/or MAG REPLACEMENT MC SCH (08:00)
[2022-06-09] MEDS: potassium Cl 20 mEq SR tablet PO SCH (08:00)
[2022-06-09 11:00] VITALS: BP 102/70
[2022-06-09 11:32] LABS: BASOPHILS % (AUTO) 0.6 % (0-1); EOSINOPHILS # (AUTO) 0.1 X10'3 (0-0.9); EOSINOPHILS % (AUTO) 1.1 % (0-6); HEMATOCRIT 48.5 % (42.0-52.0); HEMOGLOBIN 16.4 g/dl (14.0-17.9); LYMPHOCYTES % (AUTO) 15.2 % (21-51); MEAN CORPUSCULAR HGB CONC 33.7 g/dL (33.0-36.5); MEAN PLATELET VOLUME 8.9 FL (7.4-10.4); MONOCYTES # (AUTO) 0.6 X10'3 (0-0.9); MONOCYTES % (AUTO) 9.4 % (2-12); NEUTROPHILS # (AUTO) 4.7 X10'3 (1.8-7.7); NEUTROPHILS % (AUTO) 73.7 % (42-75); PLATELET COUNT 201 X10'3 (140-440); RED BLOOD COUNT 5.64 X10'6 (4.70-6.10); RED CELL DISTRIBUTION WIDTH 15.9 % (11.5-14.5); WHITE BLOOD COUNT 6.4 X10'3 (4.5-11.0)
[2022-06-09 11:35] LABS: ALBUMIN 3.3 G/DL (3.4-5.0); ANION GAP 10 (8-16); BLOOD UREA NITROGEN 22 MG/DL (7-18); BUN/CREATININE RATIO 16.1 (5.4-32.0); CALCIUM 9.1 MG/DL (8.5-10.1); CHLORIDE 102 MMOL/L (99-107); CREATININE 1.37 MG/DL (0.60-1.10); GLUCOSE 250 MG/DL (70-104); POTASSIUM 3.8 MMOL/L (3.5-5.1); SODIUM 139 MMOL/L (135-145); eGFR 49 ML/MIN
[2022-06-09] MEDS ORDERED: LOSA50TA64 PO (15:52)
--- NOTE | 2022-06-09 18:10 | NUR ---
patient states that he feels sad and upset about [facility]. is now for DC home . A&O x4. present. All cares given. prescription called over to [facility] on [address]. Seen by Dr Canela. All Dc instructions given to patient and spouse. patient Dc home via private car with in stable condition.
== END 2022-06-09 17:06 | disposition home or self-care (01) | DRG 56 ==
LOC: ER 07:41 → ED HOLD 05-29 00:44 → PCU 3S 05-29 10:11
PROVIDERS: ADMIT Family Medicine; ATTEND Family Medicine
PROC: 009U3ZX Drainage of Spinal Canal, Percutaneous Approach, Diagnostic (ICD-10-PCS; principal; 2022-05-28)
PROC: 4A10X4Z Monitoring of Central Nervous Electrical Activity, External Approach (ICD-10-PCS; 2022-05-29)
DX: G91.2 (Idiopathic) normal pressure hydrocephalus (principal); N17.0 Acute kidney failure with tubular necrosis; F03.90 Unspecified dementia, unspecified severity, without behavioral disturbance, psychotic disturbance, mood disturbance, and anxiety; I10 Essential (primary) hypertension; F41.9 Anxiety disorder, unspecified; R27.0 Ataxia, unspecified; R29.6 Repeated falls; Z20.822 Contact with and (suspected) exposure to COVID-19; Z66 Do not resuscitate; E87.6 Hypokalemia; I25.10 Atherosclerotic heart disease of native coronary artery without angina pectoris; E11.51 Type 2 diabetes mellitus with diabetic peripheral angiopathy without gangrene; Z85.46 Personal history of malignant neoplasm of prostate; Z86.73 Personal history of transient ischemic attack (TIA), and cerebral infarction without residual deficits; Z95.0 Presence of cardiac pacemaker; I25.2 Old myocardial infarction; Z86.16 Personal history of COVID-19
CPT/HCPCS: 36415; 62270; 70450; 70551; 80048; 80053; 80061; 80305; 80320; 81003; 82550; 82945; 82948; 83036; 83605; 83690; 83735; 83880; 84100; 84157; 84443; 84484; 85025; 85379; 85610; 85730; 87015; 87040; 87070; 87635; 89051; 92508; 92616; 93306; 95816; 96374; 97110; 97116; 97161; 97530; 99285; A6258; A6449; C9803; G0378; J1815; J2060; J3480; J7030; J7040

== ENCOUNTER 2022-07-04 16:12 | Inpatient (IN) | payer MEDICARE, BC ==
[~2022-07-04] VITALS: Ht 172.7 cm; Wt 63.6 kg
[~2022-07-04 16:12] MED LIST: ASPI-1265 PO; ATOR10TA70 PO; CHOL125C6; CLOT30CR39; ERYT1OIN6 EACHEYE; LOSA50TA64 PO; MET0.75G TP; METF-436 PO; NAPR-56 PO; NAS0.025NS BOTHNARES; NIFE90TA44 PO; OMEP40CA21 PO; POTA-207 PO; TRIA15CR62 TOP
[2022-07-04] MEDS ORDERED: normal saline 1000ML IV soln IVB ONE (16:20)
[2022-07-04 16:47] LABS: BASOPHILS % (AUTO) 0.3 % (0-1); EOSINOPHILS % (AUTO) 0.4 % (0-6); HEMATOCRIT 47.1 % (42.0-52.0); HEMOGLOBIN 16.3 g/dl (14.0-17.9); LYMPHOCYTES # (AUTO) 1.6 X10'3 (1.1-4.8); LYMPHOCYTES % (AUTO) 21.5 % (21-51); MEAN CORPUSCULAR HEMOGLOBIN 29.6 PG (27.0-31.0); MEAN CORPUSCULAR HGB CONC 34.5 g/dL (33.0-36.5); MEAN CORPUSCULAR VOLUME 85.9 FL (78-98); MEAN PLATELET VOLUME 8.9 FL (7.4-10.4); MONOCYTES # (AUTO) 0.5 X10'3 (0-0.9); MONOCYTES % (AUTO) 6.8 % (2-12); NEUTROPHILS # (AUTO) 5.1 X10'3 (1.8-7.7); PLATELET COUNT 159 X10'3 (140-440); RED BLOOD COUNT 5.49 X10'6 (4.70-6.10); RED CELL DISTRIBUTION WIDTH 14.9 % (11.5-14.5); WHITE BLOOD COUNT 7.2 X10'3 (4.5-11.0)
[2022-07-04 17:10] LABS: ALANINE AMINOTRANSFERASE 27 U/L (12-78); ALBUMIN 3.3 G/DL (3.4-5.0); ALBUMIN/GLOBULIN RATIO 0.9 (1.1-1.5); ALKALINE PHOSPHATASE 76 IU/L (46-116); ANION GAP 15 (8-16); ASPARTATE AMINO TRANSFERASE 18 U/L (10-37); BILIRUBIN,TOTAL 1.1 MG/DL (0.1-1.0); BLOOD UREA NITROGEN 21 MG/DL (7-18); BUN/CREATININE RATIO 19.3 (5.4-32.0); CALCIUM 8.9 MG/DL (8.5-10.1); CHLORIDE 110 MMOL/L (99-107); CREATININE 1.09 MG/DL (0.60-1.10); GLUCOSE 109 MG/DL (70-104); POTASSIUM 3.2 MMOL/L (3.5-5.1); SODIUM 146 MMOL/L (135-145); TOTAL CARBON DIOXIDE 20.9 MMOL/L (24-32); TOTAL PROTEIN 6.8 G/DL (6.4-8.2); eGFR 64 ML/MIN
[2022-07-04 17:12] LABS: ETHANOL < 0.010 GM/DL (0.0-0.010)
[2022-07-04] MEDS ORDERED: potassium Cl 10 mEq/100mL bag IV ONE (17:20)
[2022-07-04 18:19] LABS: CLARITY,URINE CLEAR (Clear); COLOR,URINE YELLOW (Yellow); GLUCOSE, URINE NEGATIVE (Neg); KETONES,URINE TRACE mg/dl (Neg); LEUKOCYTE ESTERASE ,URINE NEGATIVE (Neg); NITRITES, URINE NEGATIVE (Neg); OCCULT BLOOD,URINE NEGATIVE (Neg); PROTEIN,URINE NEGATIVE (Neg); UROBILINOGEN,URINE 0.2 E.U/dL (0.2-1.0)
[2022-07-04 18:37] LABS: URINE AMPHETAMINE SCREEN NEGATIVE (Neg); URINE BARBITUATE SCREEN NEGATIVE (Neg); URINE BENZODIAZEPINES SCREEN NEGATIVE (Neg); URINE CANNABINOID SCREEN NEGATIVE (Neg); URINE COCAINE SCREEN NEGATIVE (Neg); URINE METHADONE SCREEN NEGATIVE (Neg); URINE OPIATE SCREEN NEGATIVE (Neg); URINE PHENCYCLIDINE SCREEN NEGATIVE (Neg)
[2022-07-04 18:39] LABS: UA COLLECTION TYPE CLN CATCH MIDSTREAM
[2022-07-04 19:10] LABS: CREATINE KINASE 30 U/L (39-308)
[2022-07-04] MEDS ORDERED: mag hydrox/Alum hydrox/simeth 30ml oral suspension PO PRN (19:35)
[2022-07-04] MEDS ORDERED: normal saline 1000ml 1,000 ML IV SCH (19:35)
[2022-07-04] MEDS ORDERED: ondansetron/PF 4mg/2ml inj IV PRN (19:35)
[2022-07-04] MEDS ORDERED: magnesium Cl slow-release 64mg tablet PO PRN (19:35)
[2022-07-04] MEDS ORDERED: potassium CL 10mEq/100ml bag 100 ML IV PRN (19:35)
[2022-07-04] MEDS ORDERED: POTASSIUM BICARB 20meq eff tab 20 MEQ TABLET.EFF PO PRN (19:35)
[2022-07-04] MEDS ORDERED: acetaminophen 325mg tablet PO PRN (19:35)
[2022-07-04] MEDS ORDERED: magnesium 4gm in 100ml NS 100 ML IV PRN (19:35)
[2022-07-04] MEDS ORDERED: magnesium 2GM in 50ml NS 50 ML IV PRN (19:35)
[2022-07-04] MEDS ORDERED: magnesium hydroxide 30ml (MOM) UD suspension PO PRN (19:35)
[2022-07-04] MEDS ORDERED: dextrose 50%-water 50ml dispensing syringe IV PRN ×2 (19:45)
[2022-07-04] MEDS ORDERED: MESSAGE TO PHARMACY PO ONE (19:45)
[2022-07-04] MEDS ORDERED: insulin Lispro (HumaLOG) vial - multi-dose SQ SCH (19:45)
[2022-07-04] MEDS ORDERED: glucagon, human recombinant 1mg kit SUBCUT PRN (19:45)
[2022-07-04] MEDS ORDERED: DEXTROSE 15 GM of carb/4 tabs (each vial/BOTTLE has 4 tablets) PO PRN ×2 (19:45)
[2022-07-04] MEDS: K and/or MAG REPLACEMENT MC SCH (19:48)
[2022-07-04 19:55] LABS: MAGNESIUM 1.7 MG/DL (1.5-2.4); POTASSIUM 5.9 MMOL/L (3.5-5.1)
[2022-07-04] MEDS: heparin, porcine 5000 units/ml vial SQ SCH (20:00)
[2022-07-04] MEDS: docusate sod 100mg capsule PO SCH (20:00)
[2022-07-04] MEDS: insulin glargine (Lantus) pen - multi-dose SQ SCH (20:25)
[2022-07-05] MEDS ORDERED: OMEP20CA16 PO (03:15)
[2022-07-05] MEDS ORDERED: LOSA100T57 PO ×2 (03:15→14:35)
[2022-07-05 07:00] VITALS: BP 168/99
--- NOTE | 2022-07-05 07:14 | NUR ---
REPORT GIVEN TO MONTANA SANCHEZ, PT TO GO TO BED 4009.
--- NOTE | 2022-07-05 07:16 | NUR ---
PT CURRENTLY HAVING SWALLOW STUDY AT BEDSIDE.
--- NOTE | 2022-07-05 07:30 | NUR ---
patient arrived on floor following report from hetal RN . patient appears stable prsent. Seen by Dr Ricks medfede being addressed. BM x2 up to commode with x1 assist. Working with PT B/P 182/99. dr ricks paged with regards this
[2022-07-05 07:34] LABS: BASOPHILS % (AUTO) 0.4 % (0-1); EOSINOPHILS % (AUTO) 0.4 % (0-6); HEMATOCRIT 51.2 % (42.0-52.0); HEMOGLOBIN 17.5 g/dl (14.0-17.9); LYMPHOCYTES # (AUTO) 1.5 X10'3 (1.1-4.8); LYMPHOCYTES % (AUTO) 21.3 % (21-51); MEAN CORPUSCULAR HEMOGLOBIN 29.5 PG (27.0-31.0); MEAN CORPUSCULAR HGB CONC 34.2 g/dL (33.0-36.5); MEAN CORPUSCULAR VOLUME 86.2 FL (78-98); MEAN PLATELET VOLUME 8.9 FL (7.4-10.4); MONOCYTES # (AUTO) 0.6 X10'3 (0-0.9); MONOCYTES % (AUTO) 7.9 % (2-12); NEUTROPHILS # (AUTO) 4.9 X10'3 (1.8-7.7); PLATELET COUNT 166 X10'3 (140-440); RED BLOOD COUNT 5.93 X10'6 (4.70-6.10); RED CELL DISTRIBUTION WIDTH 15.5 % (11.5-14.5)
[2022-07-05] MEDS: K and/or MAG REPLACEMENT MC SCH ×2 (08:00→21:13)
[2022-07-05 08:08] LABS: ALANINE AMINOTRANSFERASE 29 U/L (12-78); ALBUMIN 3.3 G/DL (3.4-5.0); ALBUMIN/GLOBULIN RATIO 0.8 (1.1-1.5); ALKALINE PHOSPHATASE 81 IU/L (46-116); ANION GAP 17 (8-16); ASPARTATE AMINO TRANSFERASE 26 U/L (10-37); BLOOD UREA NITROGEN 17 MG/DL (7-18); BUN/CREATININE RATIO 15.3 (5.4-32.0); CHLORIDE 112 MMOL/L (99-107); CREATININE 1.11 MG/DL (0.60-1.10); GLUCOSE 108 MG/DL (70-104); POTASSIUM 3.2 MMOL/L (3.5-5.1); SODIUM 151 MMOL/L (135-145); TOTAL CARBON DIOXIDE 22.5 MMOL/L (24-32); TOTAL PROTEIN 7.2 G/DL (6.4-8.2); eGFR 63 ML/MIN
[2022-07-05 10:00] VITALS: BP 110/77
[2022-07-05] MEDS: heparin, porcine 5000 units/ml vial SQ SCH ×2 (12:44→21:13)
[2022-07-05] MEDS: docusate sod 100mg capsule PO SCH ×2 (12:44→21:13)
[2022-07-05] MEDS ORDERED: temazepam 15mg capsule PO PRN (12:50)
[2022-07-05] MEDS: POTASSIUM BICARB 20meq eff tab 20 MEQ TABLET.EFF PO PRN ×2 (12:51→17:32)
[2022-07-05] MEDS: sodium chloride 0.45% 1,000 ML IV SCH ×2 (12:58→21:07)
[2022-07-05] MEDS ORDERED: ASPI-611 PO (14:33)
[2022-07-05] MEDS ORDERED: ESCI-8 PO (14:34)
[2022-07-05] MEDS ORDERED: MULT-1161 PO (14:36)
[2022-07-05] MEDS ORDERED: THIA50TA10 PO (14:39)
[2022-07-05] MEDS ORDERED: HYDR50TA65 PO (14:40)
[2022-07-05] MEDS ORDERED: hydrALAZINE 20mg/ml inj. IV PRN (15:45)
[2022-07-05 16:00] VITALS: BP 182/99
[2022-07-05 16:15] VITALS: BP 169/100
[2022-07-05 18:00] VITALS: BP_SYST 109; BP_SYST 148; BP_DIAS 49; BP_DIAS 82
--- NOTE | 2022-07-05 18:47 | NUR ---
Problems reprioritized. Patient report given, questions answered & plan of care reviewed with melecio BOYLE.
--- NOTE | 2022-07-05 18:47 | NUR ---
hydralazine given see emar will monitor results 3231
[2022-07-05] MEDS ORDERED: metroNIDAZOLE 0.75% 45gm topical cream TP SCH (20:00)
[2022-07-05] MEDS ORDERED: atorvastatin 10mg tablet PO SCH (21:00)
[2022-07-05] MEDS: insulin glargine (Lantus) pen - multi-dose SQ SCH (21:00)
[2022-07-05 22:00] VITALS: BP 150/87
[2022-07-06 05:00] VITALS: BP 160/90
[2022-07-06 06:22] LABS: BASOPHILS % (AUTO) 0.4 % (0-1); EOSINOPHILS % (AUTO) 0.5 % (0-6); HEMATOCRIT 46.2 % (42.0-52.0); HEMOGLOBIN 15.9 g/dl (14.0-17.9); LYMPHOCYTES # (AUTO) 1.4 X10'3 (1.1-4.8); LYMPHOCYTES % (AUTO) 22.1 % (21-51); MEAN CORPUSCULAR HEMOGLOBIN 29.4 PG (27.0-31.0); MEAN CORPUSCULAR HGB CONC 34.5 g/dL (33.0-36.5); MEAN CORPUSCULAR VOLUME 85.3 FL (78-98); MEAN PLATELET VOLUME 9.2 FL (7.4-10.4); MONOCYTES # (AUTO) 0.5 X10'3 (0-0.9); MONOCYTES % (AUTO) 8.4 % (2-12); NEUTROPHILS # (AUTO) 4.3 X10'3 (1.8-7.7); NEUTROPHILS % (AUTO) 68.6 % (42-75); PLATELET COUNT 170 X10'3 (140-440); RED BLOOD COUNT 5.42 X10'6 (4.70-6.10); RED CELL DISTRIBUTION WIDTH 15.1 % (11.5-14.5); WHITE BLOOD COUNT 6.3 X10'3 (4.5-11.0)
[2022-07-06] MEDS: sodium chloride 0.45% 1,000 ML IV SCH (06:35)
--- NOTE | 2022-07-06 06:42 | NUR ---
reported to days. noted pt aspiration precautions - usually at bedside throughout the day
--- NOTE | 2022-07-06 06:45 | NUR ---
Patient in room ORTHO 4009. I have received report from Esvin BOYLE and had the opportunity to ask questions and assume patient care.
[2022-07-06 07:42] LABS: ALANINE AMINOTRANSFERASE 25 U/L (12-78); ALBUMIN 2.9 G/DL (3.4-5.0); ALBUMIN/GLOBULIN RATIO 0.9 (1.1-1.5); ALKALINE PHOSPHATASE 72 IU/L (46-116); ANION GAP 13 (8-16); ASPARTATE AMINO TRANSFERASE 20 U/L (10-37); BILIRUBIN,TOTAL 0.9 MG/DL (0.1-1.0); BLOOD UREA NITROGEN 16 MG/DL (7-18); BUN/CREATININE RATIO 16.2 (5.4-32.0); CALCIUM 8.4 MG/DL (8.5-10.1); CHLORIDE 111 MMOL/L (99-107); CREATININE 0.99 MG/DL (0.60-1.10); GLUCOSE 117 MG/DL (70-104); MAGNESIUM 1.8 MG/DL (1.5-2.4); POTASSIUM 3.2 MMOL/L (3.5-5.1); SODIUM 147 MMOL/L (135-145); TOTAL CARBON DIOXIDE 22.8 MMOL/L (24-32); TOTAL PROTEIN 6.1 G/DL (6.4-8.2); eGFR 72 ML/MIN
[2022-07-06] MEDS: K and/or MAG REPLACEMENT MC SCH (07:43)
[2022-07-06] MEDS ORDERED: NIFEdipine XL 30mg tablet PO SCH (08:00)
[2022-07-06] MEDS ORDERED: losartan 50mg tablet PO SCH (08:00)
[2022-07-06] MEDS ORDERED: pantoprazole 40mg Tablet.DR PO SCH (08:00)
[2022-07-06] MEDS ORDERED: thiamine 100mg tablet PO SCH (08:00)
[2022-07-06] MEDS ORDERED: naproxen 500mg tablet PO SCH (08:00)
[2022-07-06] MEDS ORDERED: aspirin 81mg tab.chew PO SCH (08:00)
[2022-07-06] MEDS ORDERED: non-formulary drug (Aspirin (Aspir 81) 1 TAB) PO SCH (08:00)
[2022-07-06 08:29] VITALS: BP_SYST 158
[2022-07-06] MEDS: docusate sod 100mg capsule PO SCH (08:29)
[2022-07-06] MEDS: heparin, porcine 5000 units/ml vial SQ SCH (08:30)
--- NOTE | 2022-07-06 08:48 | NUR ---
Diabetes consult: Pt w/ hx of DM A1c 6.8 on 05/29/22 per EMR, well controlled and appropriate for age. DM ed not indicated at this time. Addendum: 07/06/22 at [address] Amended: Links added.
--- NOTE | 2022-07-14 13:48 | NUR ---
Case Management DC follow up: Left VM with name ,telephone number, and reason for call.
== END 2022-07-06 11:45 | disposition home health service (06) | DRG 92 ==
LOC: ER 16:13 → ED HOLD 19:41 → EDBEDREQ 20:03 → ORTHO 4S 07-05 07:58
PROVIDERS: ADMIT Internal Medicine; ATTEND Family Medicine
DX: G92.8 Other toxic encephalopathy (principal); E87.0 Hyperosmolality and hypernatremia; E11.22 Type 2 diabetes mellitus with diabetic chronic kidney disease; E86.0 Dehydration; E87.6 Hypokalemia; G47.00 Insomnia, unspecified; T43.595A Adverse effect of other antipsychotics and neuroleptics, initial encounter; I12.9 Hypertensive chronic kidney disease with stage 1 through stage 4 chronic kidney disease, or unspecified chronic kidney disease; N18.30 Chronic kidney disease, stage 3 unspecified; Z79.82 Long term (current) use of aspirin; Z79.84 Long term (current) use of oral hypoglycemic drugs; Z79.899 Other long term (current) drug therapy; Z85.46 Personal history of malignant neoplasm of prostate; Z86.73 Personal history of transient ischemic attack (TIA), and cerebral infarction without residual deficits; Z86.16 Personal history of COVID-19; Y92.098 Other place in other non-institutional residence as the place of occurrence of the external cause
CPT/HCPCS: 36415; 70450; 71045; 80053; 80305; 80320; 81003; 82550; 82607; 82948; 83605; 83735; 84132; 84484; 85025; 87081; 92508; 92616; 93005; 97110; 97116; 97161; 99285; A4349; C1758; G0378; J0360; J1644; J1815; J3480; J3490; J7030